=== PATIENT | male | born 1935 | race Caucasian/White ===

== ENCOUNTER 2016-10-08 09:01 | Outpatient (CLI) | payer MEDICARE, OTHER ==
[~2016-10-08] VITALS: Ht 180.3 cm; Wt 95.0 kg
--- NOTE | ~2016-10-08 | HEMODYNAMI ---
PATIENT:ROSAURA METCALF MEDICAL RECORD: [id number] : 39 LOCATION:D.CAT ADMISSION DATE: 10/08/16 Generatedon:10/08/201613:11 Patient name: ROSAURA METCALF Patient #: [id number] SSN: [id number] : 1935 Date of study: 10/08/2016 Page: Of Hemodynamic Procedure Report Patient Data Patient Demographics Procedure consent was obtained First Name: ROSAURA Gender: Male Last Name: DIXON : 1935 [facility] Initial: JAYCEE Age: 81 year(s) Patient #: [id number] Race: SSN: [id number] Additional ID: [id number] Contact details Address: [address] [place] [address] State: [place] City: [facility] Zip code: [address] Past Medical History Allergies: No known allergies Admission Admission Data Admission Date: 10/08/2016 Admission Time: 9:01 Arrival Date: 10/08/2016 Arrival Time: 11:30 Admit Source: Other Insurance Payor: Medicare Height (in.): 72 BSA: 2.17 (m2) Height (cm.): 182.88 BMI: 28.35 (kg/m2) Weight (lbs.): 209 Weight (kg.): 94.8 Lab Results Lab Result Date: 10/08/2016 Lab Result Time: 0:00 Biochemistry Name Units Result Min Max BUN mg/dl 30 --(----)-* 7 18 Creatinine mg/dl 1.5 --(----)-* 0.6 1.3 CBC Name Units Result Min Max Hemoglobin g/dl 15.5 --(-*--)-- 13.5 17.5 Procedure Procedure Types Cath Procedure Diagnostic Procedure Cardioversion Procedure Description Procedure Date Procedure Date: 10/08/2016 Procedure Start Time: 13:03 Procedure End Time: 13:09 Procedure Staff Name Function Maximino Parr MD Performing Physician Cecily Gomes RT Scrub Chelsey Pierce RN Nurse Eli Olivier RT Monitor Procedure Data Cath Procedure Estimated blood loss: 0 ml Procedure Complications No complications Procedure Medications Medication Administration Route Dosage Oxygen NC 6 l/min Refer to Anesthesia Notes for Sedation Medications Hemodynamics Rest BSA: 2.17 (m2) HGB: 15.5 (g/dl) O2 Consumption: Estimated: 295.12 (ml/min) O2 Consumption indexed: Estimated:136 (ml/min/m) Pre Cath Intra NCS Post Cath Vital Signs Time Heart Resp SPO2 NIBP (mmHg) Rhythm Pain Sedation Rate (ipm) (%) Status Level (bpm) 12:55:48 58 14 98 129/83(121) A-Fib 0 (11) 10(A) , No pain 13:00:45 62 19 98 127/87(104) A-Fib 0 (11) 8(A) , No pain 13:04:58 69 16 100 108/69(95) NSR 0 (11) 8(A) , No pain 13:09:03 52 18 99 126/66(78) NSR 0 (11) 10(A) , No pain Medications Time Medication Route Dose Verified Delivered Reason Notes Effectiven ess by by 12:55:06 Oxygen NC 6 Chelsey Barbosa used for l/min Kari Pierce RN procedure 12:55:18 Refer to Chelsey Barbosa for Anesthesia Kari Pierce RN sedation Notes for Sedation Medications Procedure Log Time Note 12:27:04 Informed consent obtained and on chart 12:27:19 Admit Source: Other 12:27:24 Patient Height : 182.88 cm 12:27:31 Patient Weight : 94.8 kg 12:27:42 Arrival Date: 10/08/2016 11:30:00 AM 12:28:44 Insurance Payor : Medicare 12::27 Lab Result : Hemoglobin 15.5 g/dl 12::27 Lab Result : Creatinine 1.5 mg/dl 12:31:27 Lab Result : BUN 30 mg/dl 12:31:38 Diagnostic Cath Status : Elective 12:32:20 Time tracking: Regular hours 12:32:26 Plan of Care:Hemodynamics will remain stable., Cardiac rhythm will remain stable., Comfort level will be maintained., Respiratory function will remain adequate., Patient/ family verbilizes understanding of procedure., Procedure tolerated without complication., Recovers from procedure without complications.. 12:42:02 Buffie Pierce RN sent for patient. Start room use. 12:48:58 Patient received from Pre/Post Procedure Room to CCL 2 Alert and oriented. Tansferred to table in Supine position. 12:49:07 Patient arrived from Pre/Post Procedure Room to CCL 2. Patient remains on bed/stretcher for procedure. 12:49:08 Warm blankets applied, and thierry hugger turned on for patient comfort. 12:49:09 Correct patient and procedure confirmed by team. 12:49:38 H&P Date Dictated: 10/04/2016 Within 30 days and on chart., H&P Addendum completed by physician on day of procedure. (MUST COMPLETE FOR ALL OUTPATIENTS). 12:49:41 Pre-procedure instructions explained to patient. 12:50:01 Pre-op teaching completed and patient verbalized understanding. 12:50:03 Family in waiting room. 12:50:05 Patient NPO since Midnight. 12:50:22 Patient allergic to No known allergies 12:51:42 Sleep apnea? No 12:51:48 Previous problem with sedation/anesthesia? No ? 12:52:02 Snore? No 12:52:24 Dentures? Yes ? 12:52:29 Airway obstruction? No ? 12:54:45 Vital chart was started 12:55:06 Oxygen 6 l/min NC was administered by Chelsey Pierce RN; used for procedure; 12:55:18 Refer to Anesthesia Notes for Sedation Medications was administered by Chelsey Pierce RN; for sedation; 12:56:04 Patient diabetic? No. 12:56:27 Is patient on blood thinner?Yes 12:56:32 ACC The patient was administered the following blood thiners within the last 24 hours: Xarelto 12:56:42 Patient pain scale 0/10 ?. 12:56:59 IV patent on arrival in left forearm with 0.9% NaCl at KVO. 12:57:04 Lab results completed and on chart. 12:57:07 Alarms reviewed by R. N. 12:57:08 Sharps counted by scrub and verified by R.N. 12:57:10 Physician paged 12:59:40 Dr. Parkinson present and monitoring patient for TIVA. 12:59:42 Quick combo pads placed on patients chest and back. 12:59:49 Quick Combo opened to sterile field. 13:01:34 Physician arrived 13:01:40 --------ALL STOP TIME OUT------ 13:01:41 Final Timeout: patient, procedure, and site verified with staff and physician. All members of the team are in agreement. 13:01:46 Physical assessment completed. ASA score P 3 - A patient with severe systemic disease as per Maximino Parr MD. 13:01:52 Sedation plan: TIVA Propofol 13:03:13 Procedure started. 13:03:13 Full Disclosure recording started 13:05:12 Defibrillator synced and charged to 200 Joules. 13:05:22 Shock delivered. 13:05:37 Patient cardioverted to sinus rhythm . 13:06:02 Procedure ended.(Physican Out) 13:06:40 Post Procedure Pulses reassessed and unchanged 13:06:47 Post-procedure physical assessment completed. ASA score P 2 - A patient with mild systemic disease as per Maximino Parr MD. 13:06:50 Post procedure rhythm: sinus rhythm 13:06:53 Estimated blood loss: 0 ml 13:06:55 Post procedure instruction explained to patient.Patient verbalizes understanding. 13:07:14 Procedure and supply charges have been captured, reviewed, submitted and are correct. 13:07:19 Procedure Complication : No complications 13:09:14 Vital chart was stopped 13:09:16 See physician's report for complete and final results. 13:09:19 Report given to Pre/Post Procedure Room. 13:09:22 Patient transfered to Pre/Post Procedure Room with Stretcher. 13:09:25 Procedure ended. 13:09:25 Full Disclosure recording stopped 13:09:27 End room use (Document Last) Device Usage Item Manufacture Quantity Catalog Hospital Part Current Minimal Lot# / Name Number Charge Number Stock Smith Drew al# Code Loffles 1 [id number] Combo Signature Audit Whitfield Stage Time Signature Unsigned Intra-Procedure 10/08/2016 Eli Olivier 1:11:38 PM RT(R) Signatures Monitor : Eli Olivier Signature : RT Date : Time : [facility] [address] [place] [address]
[2016-10-08] MEDS ORDERED: PACERONE200 MG PO (09:53)
[2016-10-08] MEDS ORDERED: XARELTO20 MG PO (09:53)
[2016-10-08] MEDS ORDERED: OMEPRAZOLE40 MG PO (09:54)
[2016-10-08] MEDS ORDERED: PROPRANOLOL HCL80 MG PO (09:54)
[2016-10-08] MEDS ORDERED: FUROSEMIDE20 MG PO (09:54)
[2016-10-08] MEDS ORDERED: PRESERVISION AR1 CAP PO (09:55)
[2016-10-08] MEDS ORDERED: ALDACTONE25 MG PO (09:55)
[2016-10-08 09:58] VITALS: BP 116/75; Ht 180.3 cm; Wt 95.0 kg
[2016-10-08 10:16] LABS: BASOPHILS 0.2 % (0-2); EOSINOPHILS 0.8 % (0-7); HEMATOCRIT 47.7 % (42.0-54.0); HEMOGLOBIN 15.5 g/dL (13.5-17.5); IMMATURE GRANULOCYTES 0.5 % (0-5); LYMPHOCYTES 22.6 % (15-50); MCH 31.8 pg (26.0-34.0); MCHC 32.5 g/dL (31.0-37.0); MCV 97.9 fL (80.0-100.0); MEAN PLATELET VOLUME 10.2 fL (7.4-10.4); MONOCYTES 9.3 % (2-11); NEUTROPHILS 66.6 % (40-80); PLATELET COUNT 296 10x3/uL (130-400); RBC 4.87 10x6/uL (4.20-6.10); RDW 14.2 % (11.5-14.5); WBC 10.3 10x3/uL (4.8-10.8)
[2016-10-08 10:30] LABS: INR 2.6 (0.85-1.17)
[2016-10-08 10:34] LABS: ANION GAP 13.8 mmol/L (8-16); CALCIUM 10.1 mg/dL (8.5-10.1); CARBON DIOXIDE 29.1 mmol/L (21.0-32.0); CREATININE - SERUM 1.5 mg/dL (0.6-1.3); POTASSIUM - SERUM 3.9 mmol/L (3.5-5.1)
--- NOTE | 2016-10-08 13:15 | NUR ---
1315 RECIEVED TO ROOM VIA STRETCHER FROM NAVAL INSPECTOR WITH REPORTS OF CARDIOVERSION WITH ONE SHOCK AT 200. PATIENT NOW IN SB RATE 54 CHEST PAIN DENIED. WILL MONITOR 1345 VSS WITH NO DISTRESS NOTED. SANDWICH AND SODA TO BEDSIDE REPOSITIONED TO SITTING WITH HOB UP 45 DEGREES NO DISTRESS NOTED
--- NOTE | 2016-10-08 14:35 | NUR ---
PIV REMOVED FROM LEFT ARM WITH DRESSING APPLIED PATIENT UP TO GET DRESSED FOR DISCHARGE HOME
--- NOTE | 2016-10-08 14:50 | NUR ---
VERBAL AND WRITTEN DISCHARGE GONE OVER WITH PATIENT AND . LEFT VIA WC TO PARKING FOR TO DRIVE HOME VSS NO DISTRESS NOTED
--- NOTE | 2016-10-09 18:08 | OP ---
PATIENT NAME: ROSAURA METCALF MEDICAL RECORD: [id number] :37 LOCATION:D.CAT ADMISSION DATE: SURGEON: RADHA BECKER MD DATE OF OPERATION: 10/08/2016 PROCEDURE: DC cardioversion. INDICATION: Atrial fibrillation. PROCEDURE IN DETAIL: IV conscious sedation was performed per anesthesia. Continuous heart rate, O2 saturation, blood pressure monitoring all undertaken, all of which remains stable. He received 1 shock restoring sinus rhythm. OVERALL IMPRESSION: Successful DC cardioversion from atrial fibrillation to sinus rhythm. TRANSINT:[id number] Voice Confirmation ID: [id number] DOCUMENT ID: [id number] RADHA BECKER MD at 1808 CC: [id number] DICTATION DATE: 10/08/16 1312 PRODUCTION ANALYST: 10/08/16 2219 [facility] CLI 10/08/16 [id number] [place] [address]
== END 2016-10-08 14:52 | disposition home or self-care (01) ==
LOC: D.CATH 09:01
PROVIDERS: Internal Medicine Interventional Cardiology
DX: I48.91 Unspecified atrial fibrillation (principal); K21.9 Gastro-esophageal reflux disease without esophagitis; Z01.812 Encounter for preprocedural laboratory examination

== ENCOUNTER → 2017-10-24 10:31 | Outpatient (CLI) | payer MEDICARE, OTHER ==
[2016-10-08 09:58] VITALS: BMI 29.2
[~2017-10-24 10:31] MED LIST: ALDACTONE25 MG PO; FUROSEMIDE20 MG PO; OMEPRAZOLE40 MG PO; PACERONE200 MG PO; PRESERVISION AR1 CAP PO; PROPRANOLOL HCL80 MG PO; XARELTO20 MG PO
== END | disposition home or self-care (01) ==
LOC: D.MRI 10:31
DX: M25.512 Pain in left shoulder (principal)

== ENCOUNTER → 2018-01-06 11:05 | Outpatient (CLI) | payer MEDICARE, OTHER ==
[2016-10-08 09:58] VITALS: BMI 29.2
[2018-01-03 10:56] LABS: BASOPHILS 0.1 % (0-2); HEMATOCRIT 41.8 % (42.0-54.0); HEMOGLOBIN 13.5 g/dL (13.5-17.5); IMMATURE GRANULOCYTES 0.7 % (0-5); MCHC 32.3 g/dL (31.0-37.0); MCV 99.1 fL (80.0-100.0); MEAN PLATELET VOLUME 9.7 fL (7.4-10.4); MONOCYTES 10.8 % (2-11); NEUTROPHILS 71.4 % (40-80); PLATELET COUNT 330 10x3/uL (130-400); RBC 4.22 10x6/uL (4.20-6.10); RDW 14.3 % (11.5-14.5); WBC 11.5 10x3/uL (4.8-10.8)
[2018-01-03 11:03] LABS: ANION GAP 9.5 mmol/L (8-16); CALCIUM 9.6 mg/dL (8.5-10.1); CARBON DIOXIDE 29.7 mmol/L (21.0-32.0); CREATININE - SERUM 1.1 mg/dL (0.6-1.3); POTASSIUM - SERUM 4.2 mmol/L (3.5-5.1)
[~2018-01-06 11:05] MED LIST changes: +FLOMAX0.4 MG PO; +NORCO-10 PO; +PROSCAR5 MG PO
== END | disposition home or self-care (01) ==
LOC: D.PAN 12-19 09:30 → D.OPS 12-19 09:30 → EDSTATUS 07:30 → D.PAN 07:30 → D.OPS 07:30 → D.PAN 09:30 → D.OPS 10:45
PROVIDERS: Anesthesiology
DX: I71.4 Abdominal aortic aneurysm, without rupture (principal); Z01.812 Encounter for preprocedural laboratory examination

== ENCOUNTER 2018-02-03 07:05 | Day surgery (SDC) | payer MEDICARE, OTHER ==
[2018-01-31 11:06] LABS: BASOPHILS 0.2 % (0-2); EOSINOPHILS 0.7 % (0-7); HEMATOCRIT 40.7 % (42.0-54.0); HEMOGLOBIN 13.5 g/dL (13.5-17.5); IMMATURE GRANULOCYTES 0.5 % (0-5); LYMPHOCYTES 20.1 % (15-50); MCH 32.1 pg (26.0-34.0); MCHC 33.2 g/dL (31.0-37.0); MCV 96.7 fL (80.0-100.0); MEAN PLATELET VOLUME 9.9 fL (7.4-10.4); MONOCYTES 12.1 % (2-11); NEUTROPHILS 66.4 % (40-80); RBC 4.21 10x6/uL (4.20-6.10); RDW 13.9 % (11.5-14.5)
[2018-01-31 11:13] LABS: PLATELET COUNT 256 10x3/uL (130-400)
[2018-01-31 11:25] LABS: ANION GAP 14.1 mmol/L (8-16); CALCIUM 9.1 mg/dL (8.5-10.1); CARBON DIOXIDE 26.7 mmol/L (21.0-32.0); CREATININE - SERUM 1.2 mg/dL (0.6-1.3); POTASSIUM - SERUM 3.8 mmol/L (3.5-5.1)
[~2018-02-03] VITALS: Ht 180.3 cm; Wt 86.4 kg
--- NOTE | ~2018-02-03 | OP ---
PATIENT NAME: ROSAURA METCALF MEDICAL RECORD: [id number] :37 LOCATION:D.MS [id number] ADMISSION DATE: SURGEON: LISA HURST MD DATE OF OPERATION: 02/03/2018 PREOPERATIVE DIAGNOSIS: Massive rotator cuff tear, not fixable. POSTOPERATIVE DIAGNOSIS: Massive rotator cuff tear, not fixable. PROCEDURE: Superior capsular reconstruction (open rotator cuff repair with allograft augmentation). SURGEON: Lisa Hurst MD ANESTHESIA: General. INTRAOPERATIVE COMPLICATIONS: None. SUMMARY OF PATHOLOGIC FINDINGS: The patient did indeed have an entire infraspinatus tendinous tear somewhat more posterior than usual; however, it was very amenable to superior capsular reconstruction. The barrow tendon was very thin; however, the rotator cuff was well approximated throughout the entire supraspinatus and the teres minor. OPERATIVE SUMMARY IN DETAIL: After obtaining the appropriate preoperative orthopedic surgery consent as well as anesthetic consultation, evaluation and clearance, the patient was brought to the operating room and placed on the operating table in supine position. After adequate general laryngeal mask airway administered, the patient was placed in beach chair position. All pressure points were well padded. He was held firmly to the operating table using the vacuum pack suction system. Left upper extremity and shoulder were then prepped and draped in routine sterile fashion. The arm was held in Trimano arm holding device. After having already been prepped and draped, a lateral incision was made from the acromioclavicular joint over the anterior aspect of the acromion approximately 2.5 cm down the deltoid. Dissection was carried down to the rotator cuff. The large posterior rotator cuff tear was identified and then examination was carried out to be sure that the residual of the rotator cuff was in relatively good condition and it was. At this point, the wound was copiously irrigated. Gentle retraction of the glenohumeral joint was provided with a Fukuda retractor for fantastic visualization of the posterior superior aspect of the glenoid. Total of 3 suture tacks by Arthrex 3.0 suture tacks were placed at approximately the 12:30, 1:30, and 2:30 position. The graft having been measured and cut was then tightened using the scorpion punch and it was parachuted in over the posterior superior aspect of the glenoid. These were then individually tied and checked for good fixation. At this point, the double row fixation for the graft was applied on the posterior superior aspect of the greater tuberosity. This resulted in excellent depression of the humeral head. Having completed the graft superior capsular reconstruction, the infraspinatus teres minor residual was reapproximated back to the graft with #2 FiberWire. This likewise was done with the supraspinatus tendon #2 FiberWires reapproximated to the edge of the graft. Construct was sound. The wound was then copiously irrigated. Deltoid was reapproximated to the acromion using an imbricated sutured with 2-0 Vicryl. This was followed by deep and superficial closure of the deltoid fascia with #1 Vicryl. This was followed by 2-0 Vicryl and skin lon. Sterile dressings were applied. The patient was placed in a OPERATIVE REPORT [id number] ROSAURA METCALF large abduction pillow, awakened, taken to recovery room in stable condition. All final needle and sponge counts were correct. TRANSINT:[id number] Voice Confirmation ID: [id number] DOCUMENT ID: [id number] NATALI ISABEL, LISA HOROWITZ at 1419 CC: [id number] DICTATION DATE: 02/03/18 1245 CORN DETASSELER: 02/03/18 1303 [facility] [address] [place] [address]
[~2018-02-03 07:05] MED LIST changes: -FLOMAX0.4 MG PO; -NORCO-10 PO; -PROSCAR5 MG PO
[2018-02-03 07:56] VITALS: BP 149/68; BMI 26.9
[2018-02-03 14:10] VITALS: BP 112/76; BMI 26.5
[2018-02-03 16:13] VITALS: BP 136/68
[2018-02-03 16:24] VITALS: BP 136/68
[2018-02-03 21:01] VITALS: BP 124/66
[2018-02-04 04:57] VITALS: BP 135/60
[2018-02-04 08:05] VITALS: BP 124/70
[2018-02-04] MEDS ORDERED: NORCO-10 PO (12:31)
[2018-02-04 13:21] VITALS: BP 141/74
[2018-02-04 15:53] VITALS: BP 143/74
[2018-02-04 16:47] VITALS: Ht 180.3 cm; Wt 86.4 kg
[2018-02-04 21:10] VITALS: BP 120/78
[2018-02-05 05:00] VITALS: BP 123/70
[2018-02-05 08:40] VITALS: BP 130/70
[2018-02-05] MEDS ORDERED: PROSCAR5 MG PO (10:25)
[2018-02-05] MEDS ORDERED: FLOMAX0.4 MG PO (10:26)
[2018-02-05 11:40] VITALS: BP 108/63
== END 2018-02-05 15:15 | disposition home or self-care (01) ==
LOC: D.MS 07:05 → D.OPS 07:05 → D.PAN 09:15 → D.OPS 09:15 → D.PAN 10:20 → D.MS 13:45 → D.PAN 14:00 → D.OPS 14:00
PROVIDERS: Anesthesiology
DX: M75.122 Complete rotator cuff tear or rupture of left shoulder, not specified as traumatic (principal); G25.2 Other specified forms of tremor; R33.9 Retention of urine, unspecified; Z87.891 Personal history of nicotine dependence; E11.9 Type 2 diabetes mellitus without complications; I10 Essential (primary) hypertension; E78.00 Pure hypercholesterolemia, unspecified; Z88.8 Allergy status to other drugs, medicaments and biological substances; Z91.030 Bee allergy status; Z79.899 Other long term (current) drug therapy

== ENCOUNTER 2018-02-19 21:31 | Emergency (ER) | payer MEDICARE, OTHER ==
[~2018-02-19] VITALS: Ht 180.3 cm; Wt 88.2 kg
[~2018-02-19 21:31] MED LIST changes: +FLOMAX0.4 MG PO; +NORCO-10 PO; +PROSCAR5 MG PO
[2018-02-19 21:48] VITALS: Ht 180.3 cm; Wt 88.2 kg
[2018-02-19 22:37] LABS: BASOPHILS 0.2 % (0-2); EOSINOPHILS 0.9 % (0-7); HEMATOCRIT 41.6 % (42.0-54.0); IMMATURE GRANULOCYTES 0.8 % (0-5); LYMPHOCYTES 11.3 % (15-50); MCH 31.9 pg (26.0-34.0); MCHC 33.7 g/dL (31.0-37.0); MCV 94.8 fL (80.0-100.0); MEAN PLATELET VOLUME 9.9 fL (7.4-10.4); MONOCYTES 9.4 % (2-11); NEUTROPHILS 77.4 % (40-80); RBC 4.39 10x6/uL (4.20-6.10); RDW 13.6 % (11.5-14.5); WBC 18.5 10x3/uL (4.8-10.8)
[2018-02-19 22:47] LABS: APPEARANCE CLEAR (CLEAR); BACTERIA MANY /hpf (NONE SEEN); BILIRUBIN NEGATIVE (NEGATIVE); COLOR YELLOW (YELLOW); GLUCOSE NEGATIVE (NEGATIVE); KETONE NEGATIVE (NEGATIVE); NITRITE NEGATIVE (NEGATIVE); PROTEIN NEGATIVE (NEGATIVE); RED CELLS - URINE 0-5 /hpf (0-5); SPECIFIC GRAVITY 1.005 (1.005-1.020); UROBILINOGEN NORMAL (NORMAL); WHITE CELLS - URINE 0-5 /hpf (0-5)
[2018-02-19 22:50] LABS: PLATELET COUNT 394 10x3/uL (130-400)
[2018-02-19 22:52] LABS: APTT 39.1 SECONDS (22.8-39.4); PROTIME 12.8 SECONDS (11.6-15.0)
[2018-02-19 22:58] LABS: ALBUMIN 3.3 g/dL (3.4-5.0); ALKALINE PHOSPHATASE 115 U/L (46-116); ALT (SGPT) 20 U/L (10-68); BILIRUBIN - TOTAL 0.81 mg/dL (0.2-1.3); CALC OSMOLALITY 279 mosm/kg (275-300); CALCIUM 9.7 mg/dL (8.5-10.1); CARBON DIOXIDE 25.9 mmol/L (21.0-32.0); CHLORIDE - SERUM 100 mmol/L (98-107); CREATININE - SERUM 1.6 mg/dL (0.6-1.3); GLUCOSE 127 mg/dL (74-106); POTASSIUM - SERUM 3.7 mmol/L (3.5-5.1); PROTEIN - SERUM 7.5 g/dL (6.4-8.2); SODIUM 136 mmol/L (136-145); UREA NITROGEN 29 mg/dL (7-18); eGFR NON AFRICAN AMERICAN 44 mL/min (90-120)
[2018-02-19 23:09] LABS: CREATINE KINASE 77 UL (21-232)
[2018-02-19 23:10] LABS: TROPONIN-I 0.017 ng/mL (0.000-0.060)
[2018-02-20] MEDS ORDERED: MACROBID100 MG PO (01:08)
[2018-02-20] MEDS ORDERED: KEFLEX500 MG PO (01:09)
[2018-02-20 01:27] VITALS: BP 124/64
== END 2018-02-20 01:27 | disposition home or self-care (01) ==
LOC: D.ER 21:31
PROVIDERS: Family Medicine
DX: N39.0 Urinary tract infection, site not specified (principal); D72.829 Elevated white blood cell count, unspecified

== ENCOUNTER → 2018-03-17 16:21 | Outpatient (CLI) | payer MEDICARE, OTHER ==
[2018-02-19 21:48] VITALS: BMI 27.1
[~2018-03-17 16:21] MED LIST changes: +KEFLEX500 MG PO; +MACROBID100 MG PO
== END | disposition home or self-care (01) ==
LOC: D.LABREF 16:21
DX: N39.0 Urinary tract infection, site not specified (principal)

== ENCOUNTER → 2018-04-30 13:09 | Outpatient (CLI) | payer MEDICARE, OTHER ==
[2018-02-19 21:48] VITALS: BMI 27.1
== END | disposition home or self-care (01) ==
LOC: D.US 13:00
DX: R60.0 Localized edema (principal)

== ENCOUNTER → 2018-05-21 17:59 | Outpatient (CLI) | payer MEDICARE, OTHER ==
[2018-02-19 21:48] VITALS: BMI 27.1
[2018-05-21 20:12] LABS: ANION GAP 15.4 mmol/L (8-16); CALCIUM 9.5 mg/dL (8.5-10.1); CARBON DIOXIDE 27.1 mmol/L (21.0-32.0); CREATININE - SERUM 1.4 mg/dL (0.6-1.3); POTASSIUM - SERUM 4.5 mmol/L (3.5-5.1)
== END | disposition home or self-care (01) ==
LOC: D.LABREF 17:59
PROVIDERS: Internal Medicine Interventional Cardiology
DX: I10 Essential (primary) hypertension (principal)

== ENCOUNTER → 2018-07-31 12:29 | Outpatient (CLI) | payer MEDICARE, OTHER ==
[2018-02-19 21:48] VITALS: BMI 27.1
== END | disposition home or self-care (01) ==
LOC: D.MRI 12:29
PROVIDERS: ATTEND Orthopaedic Surgery
DX: M75.122 Complete rotator cuff tear or rupture of left shoulder, not specified as traumatic (principal)

== ENCOUNTER → 2018-08-12 16:56 | Outpatient (CLI) | payer MEDICARE, OTHER ==
[2018-02-19 21:48] VITALS: BMI 27.1
== END | disposition home or self-care (01) ==
LOC: D.LABREF 16:56
PROVIDERS: ATTEND Orthopaedic Surgery
DX: M19.012 Primary osteoarthritis, left shoulder (principal); Z11.8 Encounter for screening for other infectious and parasitic diseases

== ENCOUNTER 2018-08-14 14:14 | Inpatient (IN) | payer MEDICARE, OTHER ==
[~2018-08-14] VITALS: Ht 180.3 cm; Wt 87.7 kg
--- NOTE | ~2018-08-14 | OP ---
PATIENT NAME: ROSAURA METCALF MEDICAL RECORD: [id number] :37 LOCATION:D.MS [id number] ADMISSION DATE:08/25/18 SURGEON: LISA HURST MD DATE OF OPERATION: 08/25/2018 PREOPERATIVE DIAGNOSIS: Chronic rotator cuff arthropathy with failed superior capsular reconstruction. 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 PROCEDURE: Left reverse total shoulder arthroplasty. SURGEON: Lisa Hurst MD TWO WAY RADIO TECHNICIAN: Keon Vargas ANESTHESIA: General. INTRAOPERATIVE COMPLICATIONS: None. SUMMARY OF PATHOLOGIC FINDINGS: The patient did indeed have findings consistent with the preoperative MRI complete failure of the rotator cuff. IMPLANTS USED: Arthrex Univers modular system with a size 13 stem, 36 metaphyseal component, +6 polyethylene component, 36 glenosphere, 24 baseplate. OPERATIVE SUMMARY IN DETAIL: After obtaining the appropriate preoperative orthopedic surgery consent as well as anesthetic consultation, evaluation and clearance, the patient was brought to the operating room and placed in supine position. After general laryngeal mask airway was administered, the patient was placed in the beach chair position. All pressure points were well padded. He was held firmly to the operating table using the vacuum pack suction system. Left upper extremity and shoulder were then prepped and draped in a routine sterile fashion. The arm was held in the Trimano arm holding device from Arthrex. Deltopectoral incision was taken down. Cephalic vein was evaluated and protected throughout the entire case. Brown retractor was utilized to retract the deltoid laterally while the PCL retractor was utilized to retract the conjoined tendon medially very gently. Residual subscap was taken down and humerus was then dislocated into the incision. Proximal humeral cut was made using the humeral cutting guide for the Univers system. The proximal humeral protection cap was then put into place into the metaphyseal bone. The glenoid was then approached. Serial and circumferential labrectomy was followed by placement of the central pin followed by reaming and preparation for the 36 glenosphere. A 24 humeral head was put into place with a size 30 baseplate screw. This was put into place with excellent fit and fill. Peripheral screws were likewise put into place. A 36 mm glenosphere was tamped into place with a Fontaine taper and then secured with a central screw. The proximal humerus was then reapproached to size 13 with a 36 metaphyseal component set at 135 was then tamped into place. Trials were undertaken with a +3 and +6. It was felt that a +6 was the most appropriate. It was reduced, taken through range of motion and found to be stable. Trial was removed. Final component was tamped into place. Again, the shoulder was taken through range of motion and found to be stable in all positions. Copious irrigation was followed by placing a gram of TXA, a gram of vancomycin, a gram of clindamycin into the joint itself. Subscapularis was OPERATIVE REPORT [id number] ROSAURA METCALF gently reapproximated to the lesser tuberosity. Wound was then closed with #1 Vicryl followed by 2-0 Vicryl and skin lon done by Trace Vargas. Sterile dressings were applied. The patient was awakened and taken to the recovery room in stable condition. All final needle and sponge counts were correct. TRANSINT:[id number] Voice Confirmation ID: [id number] DOCUMENT ID: [id number] NATALI ISABEL, LISA HOROWITZ CC: [id number] DICTATION DATE: 08/25/18909 MANAGER DRILLING: 08/25/18 1119 ADM IN [facility] [address] [place] [address]
[2018-08-20 16:03] LABS: BASOPHILS 0.2 % (0-2); HEMATOCRIT 39.4 % (42.0-54.0); HEMOGLOBIN 13.1 g/dL (13.5-17.5); IMMATURE GRANULOCYTES 0.7 % (0-5); LYMPHOCYTES 25.6 % (15-50); MCH 31.7 pg (26.0-34.0); MCHC 33.2 g/dL (31.0-37.0); MCV 95.4 fL (80.0-100.0); MEAN PLATELET VOLUME 9.8 fL (7.4-10.4); MONOCYTES 8.4 % (2-11); NEUTROPHILS 64.1 % (40-80); RBC 4.13 10x6/uL (4.20-6.10); RDW 13.6 % (11.5-14.5); WBC 9.9 10x3/uL (4.8-10.8)
[2018-08-20 16:33] LABS: INR 1.07 (0.85-1.17); PROTIME 13.4 SECONDS (11.6-15.0)
[2018-08-20 16:34] LABS: PLATELET COUNT 269 10x3/uL (130-400)
[2018-08-20 16:37] LABS: ANION GAP 12.6 mmol/L (8-16); CALCIUM 8.9 mg/dL (8.5-10.1); CARBON DIOXIDE 29.2 mmol/L (21.0-32.0); CREATININE - SERUM 1.5 mg/dL (0.6-1.3); POTASSIUM - SERUM 3.8 mmol/L (3.5-5.1)
[2018-08-20 18:12] LABS: APPEARANCE CLEAR (CLEAR); BILIRUBIN NEGATIVE (NEGATIVE); COLOR YELLOW (YELLOW); GLUCOSE NEGATIVE (NEGATIVE); KETONE NEGATIVE (NEGATIVE); NITRITE NEGATIVE (NEGATIVE); PROTEIN NEGATIVE (NEGATIVE); SPECIFIC GRAVITY 1.015 (1.005-1.020); UROBILINOGEN NORMAL (NORMAL)
[2018-08-25] VITALS (13 sets, daily range): BP systolic 91–128; BP diastolic 48–78; Ht 180.3 cm; Wt 87.7 kg
--- NOTE | 2018-08-25 08:52 | NUR ---
PLASMA BLADE SET 6/8 BOVIE PAD RIGHT THIGH [id number] EXP 03/12/2020
--- NOTE | 2018-08-25 10:16 | NUR ---
PT ARRIVES TO ROOM VIA BED. LEFT SHOULDER IS IN SLING. DRESSING TO LEFT SHOULDER IS C/D/I. VSS. SEE FLOW SHEET. PT AAO X 4 AND ANSWERS ALL QUESTIONS APPROPRIATLEY. BED IS IN THE LOWEST POSITION. CALL LIGHT AND BEDSIDE TABLE ARE WITHIN REACH. SIDE RAILS X 2. WILL CONT TO MONITOR.
--- NOTE | 2018-08-25 10:38 | NUR ---
SCDS PLACED ON PT. INCENTIVE SPIROMETER IN RROM. PT EDUCATED ON USE AND REASON. PT AND PT FAMILY MEMBER VERBALIZE UNDERSTANDING. HEIDY MAT PLACED UNDER PT. HEIDY MAT IS ON AND WORKING. BED IS IN THE LOWEST POSITION. CALL LIGHT AND BEDSIDE TABLE ARE WITHIN REACH. WILL CONT TO MONITOR.
--- NOTE | 2018-08-25 18:46 | NUR ---
PT WITHOUT VOID SINCE ADMISSION TO FLOOR. BLADDER SCAN SHOWS 676ML FLUID IN BLADDER. PT INFORMED OF IMPORTANCE OF VOIDING. PT STATES THAT HE WILL ATTEMPT TO URINATE AND STATES, "I DO NOT WANT A CATHETER". PT GIVEN URINAL. PT SO IS AT BEDSIDE. BED IS IN THE LOWEST POSITION. CALL LIGHT AND BEDSIDE TABLE ARE WITHIN REACH. WILL CONT TO MONITOR.
--- NOTE | 2018-08-25 18:56 | NUR ---
PAGE PLACED TO DR GEORGE TO NOTIFY OF LACK OF URINATION AND RESULTS OF BLADDER SCAN.
--- NOTE | 2018-08-25 19:23 | NUR ---
DR GEORGE RETURNED PAGE. VERBAL ORDERS RECD ARE IN AND OUT CATH. IF PT IS UNABLE TO VOID.
--- NOTE | 2018-08-25 19:47 | NUR ---
15 FR IN AND OUT CATHETER PERFORMED FOLLOWING STERILE TECHNIQUE. 800 ML CLEAR DARK YELLOW URINE NOTED IN COLLECTION BAG. PT TOLERATED PROCEDURE WELL. BED IS IN THE LOWEST POSITION. CALL LIGHT AND BEDISDE TABLE ARE WITHIN REACH. ALARM IS ON AND WORKING. WILL NOTIFY SIDE PANEL HANGER NURSE.
--- NOTE | 2018-08-26 03:00 | NUR ---
PT VOIDED 450ML OF CLEAR YELLOW URINE W/O DIFFICULTY. WILL CONTINUE TO MONITOR.
[2018-08-26 04:00] VITALS: BP 110/63
[2018-08-26 05:38] LABS: HEMATOCRIT 34.6 % (42.0-54.0); HEMOGLOBIN 11.4 g/dL (13.5-17.5); MCH 31.5 pg (26.0-34.0); MCHC 32.9 g/dL (31.0-37.0); MCV 95.6 fL (80.0-100.0); MEAN PLATELET VOLUME 10.2 fL (7.4-10.4); RBC 3.62 10x6/uL (4.20-6.10); WBC 17.3 10x3/uL (4.8-10.8)
[2018-08-26 08:27] VITALS: BP 127/66
--- NOTE | 2018-08-26 09:45 | NUR ---
PT SITTING UP AT BEDISDE WITH SPOUSE IN ROOM AND PT LOR HELPING, PT HAS TREMORS IN RT ARM AND STATES HAS HAD THEM FOR A WHILE. PT UNSTEADY WALKING WITH CANE AND PHYSICAL THERAPY, WILL CONTINUE WITH PLAN OF CARE
[2018-08-26] MEDS ORDERED: PERCOCET 10-321 EAC1 PO (11:53)
[2018-08-26 12:45] VITALS: BP 121/65
--- NOTE | 2018-08-26 13:16 | NUR ---
PT SITTING UP IN CHAIR EATING LUNCH STATED PAIN IS AT A 2 BUT WANTS A PAIN PILL BEFORE HE LEAVES, ADVISED I WILL ADMINISTER 30 MINUTES BEFORE AND IT WILL BE A SECOND ON DC DUE TO SEVERAL AHEAD OF HIM, NO NEEDS VOICED, CONTINUE WITH PLAN OF CARE
--- NOTE | 2018-08-26 14:26 | NUR ---
I have reviewed this patient and I concur with the Shift Assessment completed by the Licensed Practical Nurse today this shift.
== END 2018-08-26 15:02 | disposition home or self-care (01) | DRG 483 ==
LOC: D.SDCHOLD 08-21 13:00 → D.MS 08-25 05:00 → D.SDCHOLD 08-25 07:30 → D.MS 08-25 09:53 → D.SDCHOLD 08-25 17:15 → D.MS 08-26 15:02
PROVIDERS: ADMIT Orthopaedic Surgery; ATTEND Orthopaedic Surgery
PROC: 0RRK00Z Replacement of Left Shoulder Joint with Reverse Ball and Socket Synthetic Substitute, Open Approach (ICD-10-PCS; principal; 2018-08-25 07:30)
DX: M12.812 Other specific arthropathies, not elsewhere classified, left shoulder (principal)

== ENCOUNTER → 2019-03-23 10:46 | Outpatient (CLI) | payer MEDICARE, OTHER ==
[2018-08-25 10:24] VITALS: BMI 26.9
[~2019-03-23 10:46] MED LIST changes: +PERCOCET 10-321 EAC1 PO
== END | disposition home or self-care (01) ==
LOC: D.MRI 10:46
PROVIDERS: ATTEND Orthopaedic Surgery
DX: M25.562 Pain in left knee (principal)

== ENCOUNTER 2019-05-04 05:20 | Day surgery (SDC) | payer MEDICARE, OTHER ==
[2019-05-01 11:20] LABS: ANION GAP 12.5 mmol/L (8-16); CALCIUM 9.4 mg/dL (8.5-10.1); CARBON DIOXIDE 29.7 mmol/L (21.0-32.0); CREATININE - SERUM 1.3 mg/dL (0.6-1.3); POTASSIUM - SERUM 4.2 mmol/L (3.5-5.1)
[2019-05-01 11:34] LABS: BASOPHILS 0.2 % (0-2); EOSINOPHILS 1.1 % (0-7); HEMATOCRIT 41.3 % (42.0-54.0); HEMOGLOBIN 13.4 g/dL (13.5-17.5); IMMATURE GRANULOCYTES 0.5 % (0-5); LYMPHOCYTES 19.5 % (15-50); MCHC 32.4 g/dL (31.0-37.0); MCV 98.6 fL (80.0-100.0); MEAN PLATELET VOLUME 9.7 fL (7.4-10.4); NEUTROPHILS 67.7 % (40-80); PLATELET COUNT 283 10x3/uL (130-400); RBC 4.19 10x6/uL (4.20-6.10); RDW 14.2 % (11.5-14.5); WBC 9.5 10x3/uL (4.8-10.8)
[~2019-05-04] VITALS: Ht 180.3 cm; Wt 91.6 kg
[~2019-05-04 05:20] MED LIST changes: +PRESERVISION
[2019-05-04 06:29] VITALS: BP 122/63; Ht 180.3 cm; Wt 91.6 kg
[2019-05-04] MEDS ORDERED: HYDROCODON-ACE1 EA10 PO (08:43)
--- NOTE | 2019-05-04 09:33 | NUR ---
0915-RECD TO ROOM, ALERT. IV PATENT. RESP WITH EASE. STATES PAIN IS MAYBE A 2, COMFORTABLE. 0930-TAKING LIQUIDS WITHOUT NAUSEA.
--- NOTE | 2019-05-04 10:31 | NUR ---
1015 IV REMOVED AND PRESSURE HELD DEVON WRAP TO LEFT KNEE CDI. PALP PULSE.GOOD SENSATION. INSTRUCTIONS GIVEN TO PT AND .
--- NOTE | 2019-05-06 10:08 | OP ---
PATIENT NAME: ROSAURA METCALF MEDICAL RECORD: [id number] :37 LOCATION:DELLI ADMISSION DATE: SURGEON: NATALI ISABEL, LISA HOROWITZ DATE OF OPERATION: 05/04/2019 PREOPERATIVE DIAGNOSES: 1. Medial meniscus tear of the left knee. 2. Lateral meniscus tear of the left knee. POSTOPERATIVE DIAGNOSES: 1. Medial meniscus tear of the left knee. 2. Lateral meniscus tear of the left knee. 3. ACL deficiency of the left knee. 4. 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 5. 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 PROCEDURES: 1. Arthroscopic partial medial meniscectomy. 2. Arthroscopic partial lateral meniscectomy. 3. Arthroscopic chondroplasty of the lateral femoral condyle. 4. Arthroscopic partial ACL debridement. SURGEON: Lisa Hurst MD ANESTHESIA: General. INTRAOPERATIVE COMPLICATIONS: None. SUMMARY OF PATHOLOGIC FINDINGS: As above. OPERATIVE SUMMARY IN DETAIL: After obtaining the appropriate preoperative orthopedic surgery consent as well as anesthetic consultation, evaluation and clearance, the patient was brought to the operating room and placed on the operating table in supine position. After adequate general laryngeal mask airway was administered, tourniquet was placed on the proximal aspect of left lower extremity. Left lower extremity was then prepped and draped in routine sterile fashion. The leg was elevated and exsanguinated, tourniquet was inflated to 350 mmHg. At this point, the appropriate timeout was taken and agreed upon by all. Arthroscopic portal was created followed by superomedial and inferomedial portal. Diagnostic arthroscopy did reveal the above findings. A combination of 3.5 full-radius resector and arthroscopic meniscotome were utilized to debride the stable meniscus back to stable meniscal elements, where he had a split sagittal tear just medial to the posterior medial root. Having completed this and noting that the cartilage on the medial compartment was relatively pristine, attention was then turned to debridement of the partial thickness ACL tear. Fibers were retained. The PCL was in good overall continuity. Attention was then turned to the lateral meniscus. While in the lateral meniscus, the patient did have a complex tear of the posterior horn of the lateral meniscus. This was debrided back to stable meniscal elements and a gentle chondroplasty was performed of the lateral femoral condyle to smoothen cartilaginous flaps. Small portion of the cartilage from the medial gutter was also taken down with a resector. Having completed this, the knee was insufflated with 80 cc of Depo-Medrol and 30 cc of 0.25% Marcaine with epinephrine. Sterile dressings were applied. Tourniquet was deflated. The patient was awakened and taken to recovery room in stable condition. All final OPERATIVE REPORT [id number] ROSAURA METCALF needle and sponge counts were correct. TRANSINT:[id number] Voice Confirmation ID: [id number] DOCUMENT ID: [id number] NATALI ISABEL, LISA HOROWITZ at 1008 CC: [id number] DICTATION DATE: 05/04/19 0848 GUEST SERVICES ASSOCIATE: 05/04/[address] [facility] 05/04/19 [address] [place] [address]
== END 2019-05-04 10:45 | disposition home or self-care (01) ==
LOC: D.OPS 05:20 → D.PAN 07:30 → D.OPS 07:30
PROVIDERS: Anesthesiology; ATTEND Orthopaedic Surgery
DX: S83.282A Other tear of lateral meniscus, current injury, left knee, initial encounter (principal); S83.242A Other tear of medial meniscus, current injury, left knee, initial encounter; X58.XXXA Exposure to other specified factors, initial encounter; M94.29 Chondromalacia, multiple sites; I12.9 Hypertensive chronic kidney disease with stage 1 through stage 4 chronic kidney disease, or unspecified chronic kidney disease; N18.2 Chronic kidney disease, stage 2 (mild); M17.12 Unilateral primary osteoarthritis, left knee

== ENCOUNTER → 2020-08-22 08:37 | Outpatient (CLI) | payer MEDICARE, OTHER ==
[~2020-08-22 08:37] MED LIST changes: +HYDROCODON-ACE1 EA10 PO
== END | disposition home or self-care (01) ==
LOC: D.US 08:37
DX: R60.0 Localized edema (principal)